=== PATIENT | male | born 1985 | race African-American/Black ===

== ENCOUNTER 2021-02-21 12:40 | Emergency (ER) | payer SELFPAY ==
[2021-02-21 12:50] VITALS: BP 138/94; PULSE 94; RESP 18; TEMP 36.7; O2SAT 100
--- NOTE | 2021-02-21 14:27 | ED.NAVMDI ---
HPI - Nausea/Vomiting/Diarrhea General Chief complaint: Nausea/Vomiting/Diarrhea Stated complaint: Fever/Vomiting Time Seen by Provider: 02/21/21 14:15 Source: patient and RN notes reviewed Mode of arrival: ambulatory Limitations: no limitations History of Present Illness HPI Narrative: Patient presents today complaining of rhinorrhea, subjective fever, emesis x2 since this morning. He has been taking Tylenol for his fever, with relief. Denies abdominal pain, diarrhea, constipation. He has been vaccinated against COVID-19. MD elicited complaint: nausea and vomiting Related Data Allergies Allergy/AdvReac Type Severity Reaction Status Date / Time No Known Allergies Allergy Verified 02/21/21 13:05 Review of Systems Review of Systems: CONSTITUTIONAL: Denies body aches, chills, or sweats.+ Subjective fever EYES: Denies visual changes, redness, or discharge. ENT: Denies congestion, sore throat, or otalgia.+ Rhinorrhea, sneezing CARDIOVASCULAR: Denies chest pain, palpitations, or edema. RESPIRATORY: Denies cough or dyspnea. GASTROINTESTINAL: Denies abdominal pain, or diarrhea.+ Nausea, vomiting GENITOURINARY: Denies dysuria or hematuria. SKIN: Denies rash, itching, or wounds. MUSCULOSKELETAL: Denies back pain, joint pain, or myalgia. NEUROLOGIC: Denies headache, numbness, tingling, or weakness. PSYCH: Denies depression or anxiety. PMFSH Comments At time of signature, I have reviewed and agree with nursing past medical, surgical, social and family history unless otherwise noted. Please see nursing chart for further information. There is no relevant family history pertinent to the presenting complaint Exam Narrative: GENERAL: Well-appearing, well-nourished, and in no acute distress. HEAD: Normocephalic, atraumatic. EYES: EOMI. No redness or drainage. Conjunctivae normal. ENT: Mucous membranes pink and moist. Nares clear. No rhinorrhea. Bilateral middle ear effusions. Throat normal. Uvula midline. NECK: Normal AROM. Supple. No lymphadenopathy. CHEST: No respiratory distress. Clear to auscultation. HEART: Regular rate and rhythm. No murmur appreciated. Normal peripheral pulses. ABDOMEN: Soft, nontender, nondistended, normal active bowel sounds. MUSCULOSKELETAL: No bony tenderness. EXTREMITIES: Normal range of motion. No edema. SKIN: Warm, dry, no rash. Capillary refill normal. Normal skin turgor. NEURO: No focal deficits. Alert and oriented x3. Gait steady. PSYCH: Normal affect. No signs of depression or anxiety. Course Vital Signs Vital signs: Vital Signs Temperature 98.1 F 02/21/21 12:50 Pulse Rate 94 02/21/21 12:50 Respiratory Rate 18 02/21/21 12:50 Blood Pressure 138/94 H 02/21/21 12:50 Pulse Oximetry 100 02/21/21 12:50 Temperature 98.1 F 02/21/21 12:50 Pulse Rate 94 02/21/21 12:50 Respiratory Rate 18 02/21/21 12:50 Blood Pressure 138/94 H 02/21/21 12:50 Pulse Oximetry 100 02/21/21 12:50 Reviewed. Pt has been instructed to follow up with his PCP regarding his elevated blood pressure today. MDM - Nausea/Vomiting/Diarrhea Differential Diagnosis Differential diagnosis: Likely food poisoning, gastroenteritis, dehydration and other (Viral syndrome) Critical Care Time Critical Care Time Critical Care Time: No Discharge Plan Discharge Clinical Impression: Viral syndrome Patient Disposition: Home, Self-Care Condition: Stable Instructions: Acute Nausea and Vomiting (ED), Viral Syndrome (ED) Additional Instructions: Your symptoms are likely due to a viral illness, which is not treated with antibiotics. Virus symptoms can last for up to 10-14 days. Take Tylenol for pain or fever. Take Zofran for nausea and vomiting. Rest and stay hydrated. Follow up with your PCP in 4 days if symptoms are not improving, or sooner if symptoms are worsening. Your blood pressure was elevated above 120/80 today at Urgent Care. This puts you above the threshold for follow up.
== END 2021-02-21 14:35 | disposition home or self-care (01) ==
PROVIDERS: Emergency Provider Nurse Practitioner
DX: B34.9 Viral infection, unspecified (principal)
CPT/HCPCS: 99203; G0463